=== PATIENT | female | born 1970 | race Two or more races ===

== ENCOUNTER → 2020-02-26 | Emergency (ER) | payer MEDICAID ==
[~2020-02-26] VITALS: Ht 167.6 cm; Wt 75.7 kg
[2020-02-26 22:15] VITALS: BP 144/93
== END | disposition left against medical advice (07) ==
LOC: ER 22:10
DX: R22.31 Localized swelling, mass and lump, right upper limb (principal); Z53.21 Procedure and treatment not carried out due to patient leaving prior to being seen by health care provider